=== PATIENT | female | born 1935 | race Caucasian/White ===

== ENCOUNTER 2020-03-12 07:21 | Outpatient (CLI) | payer MEDICARE, OTHER, SELFPAY ==
--- NOTE | ~2020-03-12 | MM_ITS ---
EXAMINATION: MM screening missy BI w johnathon HISTORY: Screening mammogram TECHNIQUE: Craniocaudal and mediolateral oblique 3-D tomosynthesis images were obtained and synthetic 2-D images were generated. CAD analysis was submitted and interpreted. COMPARISON: 02/02/2019 diagnostic left mammogram and limited left breast ultrasound 01/25/2019, 01/06/2018, 11/11/2016 bilateral digital screening mammogram examinations BREAST PARENCHYMAL COMPOSITION: There are scattered areas of fibroglandular density. FINDINGS: Scattered bilateral benign calcifications. New approximately 2.5 mm ill-defined opacity is noted in the posterior central left breast (craniocau alen Tomosynthesis image 25/50). Diagnostic left mammogram and, if necessary, targeted left breast ult rasound examination are recommended. Otherwise there is no evidence of suspicious mass, calcification, or architectural distortion to sugg est malignancy in either breast. There has been no suspicious interval change. IMPRESSION: 1. New irregular 2.5 mm opacity in the posterior central left breast 2. Diagnostic left mammogram is recommended, with ultrasound if required. BI-RADS Category 0: Incomplete: Needs additional imaging evaluation. Reviewed, dictated and finalized at location A. 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
== END 2020-03-12 07:22 | disposition home or self-care (01) ==
PROVIDERS: PCP Family Medicine; Visit Provider Family Medicine
DX: Z12.31 Encounter for screening mammogram for malignant neoplasm of breast (principal); R92.8 Other abnormal and inconclusive findings on diagnostic imaging of breast
CPT/HCPCS: 77063; 77067

== ENCOUNTER 2020-03-13 13:02 | Outpatient (CLI) | payer MEDICARE, OTHER, SELFPAY ==
--- NOTE | ~2020-03-13 | MMUS_ITS ---
EXAMINATION: MM diagnostic mammo unilat LT, US breast LT complete HISTORY: New 2.5 mm opacity reported in posterior central left breast on 03/12/2020 screening mammogr am TECHNIQUE: Additional 3-D tomosynthesis images of the left breast were performed and synthetic 2-D im ages were generated. CAD analysis was submitted and interpreted. High resolution complete left breast ultrasound was performed. COMPARISON: 03/12/2020 bilateral digital screening mammogram FINDINGS: MAMMOGRAPHIC FINDINGS: An approximately 2 mm subtle faint opacity is noted at the posterior margin of the image of the centr al left mid to upper breast on CC projection ULTRASOUND: There is an approximately 1.7 x 2.6 x 3.8 mm sonolucency at 5:00 2 cm from the nipple, not correspond ing to the mammographic finding. Likely a small cyst. No other significant sonographic finding of the left breast is noted. IMPRESSION: 1. Nonspecific subtle 2 mm faint mammographic opacity at posterior central mid to upper left breast. There is no detected sonographic correlate. 2. 6 month diagnostic left mammogram and left breast ultrasound follow-up are recommended. BI-RADS category 3, probably benign findings. Reviewed, dictated and finalized at location A. US AGENT IMPRESSION: 1. Nonspecific subtle 2 mm faint mammographic opacity at posterior central mid to upper left breast. There is no detected sonographic correlate. 2. 6 month diagnostic left mammogram and left breast ultrasound follow-up are r ecommended. BI-RADS category 3, probably benign findings.
== END 2020-03-13 13:03 | disposition home or self-care (01) ==
PROVIDERS: PCP Family Medicine; Visit Provider Family Medicine
DX: R92.8 Other abnormal and inconclusive findings on diagnostic imaging of breast (principal)
CPT/HCPCS: 76641; 77065

== ENCOUNTER 2020-07-02 09:13 | Outpatient (CLI) | payer MEDICARE, OTHER, SELFPAY | END 2020-07-02 09:14 | disposition home or self-care (01) | LOC: ANHCOVIDVC 09:13 | PROVIDERS: PCP Family Medicine | DX: Z23 Encounter for immunization (principal) | CPT/HCPCS: 0001A; 91300 ==

== ENCOUNTER 2020-07-23 09:09 | Outpatient (CLI) | payer MEDICARE, OTHER, SELFPAY | END 2020-07-23 09:10 | disposition home or self-care (01) | LOC: ANHCOVIDVC 09:10 | PROVIDERS: PCP Family Medicine | DX: Z23 Encounter for immunization (principal) | CPT/HCPCS: 0002A; 91300 ==

== ENCOUNTER 2020-10-08 11:36 | Outpatient (CLI) | payer MEDICARE, OTHER, SELFPAY ==
--- NOTE | ~2020-10-08 | MMUS_ITS ---
EXAMINATION: MM diagnostic missy LT w johnathon, US breast LT limited HISTORY: Follow-up left breast mass TECHNIQUE: Additional 3-D tomosynthesis images of the left breast were performed and synthetic 2-D im ages were generated. CAD analysis was submitted and interpreted. High resolution Limited left breast ultrasound was performed. COMPARISON: Comparison to multiple prior studies sequentially, with oldest reviewed study dated 12/21. BREAST PARENCHYMAL COMPOSITION: Breast composed of scattered areas of fibroglandular density. . FINDINGS: MAMMOGRAPHIC FINDINGS: There is a circumscribed radiolucent mass in the mid outer aspect of the left breast anteriorly measu ring 1.5 cm. There are benign left breast calcifications. There are no suspicious areas of architectu ral distortion. ULTRASOUND: Limited left breast ultrasound: At 1:00, 2 cm from the nipple, there is a 1.4 cm cyst. At 3:00, 4 cm from the nipple and, there is an oval circumscribed hypoechoic mass with parallel orientation and ech ogenic hilum measuring 5 mm, likely an intramammary lymph node or cluster of microcysts. IMPRESSION: 1. Probable benign left breast mass at 3:00, 4 cm from the nipple. 2. Recommend 6 month follow-up left breast ultrasound. BI-RADS category 3, probably benign findings. Reviewed, dictated and finalized at location A. IMPRESSION: 1. Probable benign left breast mass at 3:00, 4 cm from the nipple. 2. Recommend 6 month follow-up left breast ultrasound. BI-RADS category 3, probably benign findings.
== END 2020-10-08 11:37 | disposition home or self-care (01) ==
LOC: ANHIMG 11:38
PROVIDERS: PCP Family Medicine; Visit Provider Family Medicine
DX: R92.8 Other abnormal and inconclusive findings on diagnostic imaging of breast (principal)
CPT/HCPCS: 76642; 77061; 77065; G0279

== ENCOUNTER 2021-04-22 11:19 | Outpatient (CLI) | payer MEDICARE, OTHER, SELFPAY ==
--- NOTE | ~2021-04-22 | MMUS_ITS ---
EXAMINATION: MM diagnostic missy BI w johnathon, US breast BI complete HISTORY: Follow-up bilateral breast asymmetries/masses TECHNIQUE: Additional 3-D tomosynthesis images of the breasts were performed and synthetic 2-D images were generated. CAD analysis was submitted and interpreted. High resolution bilateral complete breas t ultrasound was performed. COMPARISON: Comparison to multiple prior studies sequentially, with oldest reviewed study dated 12/21. BREAST PARENCHYMAL COMPOSITION: Breast composed of scattered areas of fibroglandular density. FINDINGS: MAMMOGRAPHIC FINDINGS: There are no suspicious masses, calcifications or architectural distortion in the right breast with s pot compression or mediolateral views. There are benign calcifications. There is a persistent partial ly obscured mass in the upper outer quadrant of the left breast. ULTRASOUND: Complete bilateral US of all 4 quadrants of the breasts and retroareolar region was reviewed. Right breast: At 10:00, 3 cm from the nipple there is a 2 mm cyst. No other masses are identified. Left breast ultrasound: At 3:00, 4 cm from the nipple, there is a complex partially cystic mass with nodular lozada, posterior acoustic enhancement and no internal vascularity. At 4:00, 3 cm from the nip ple, there is an oval hypoechoic mass with internal cystic changes, likely a cluster of microcysts me asuring up to 8 mm. IMPRESSION: 1. Complex partially cystic left breast mass at 3:00, 4 cm from the nipple corresponding to the mammo graphic finding. There are nodular areas along the wall margin. 2. Ultrasound-guided left breast biopsy recommended. BI-RADS category 4, suspicious findings. Reviewed, dictated and finalized at location A. CUTTER IMPRESSION: 1. Complex partially cystic left breast mass at 3:00, 4 cm from the nipple jorge esponding to the mammographic finding. There are nodular areas along the wall m argin. 2. Ultrasound-guided left breast biopsy recommended. BI-RADS category 4, suspicious findings.
== END 2021-04-22 11:20 | disposition home or self-care (01) ==
LOC: ANHIMG 11:21
PROVIDERS: PCP Family Medicine; Visit Provider Physician Assistant
DX: R92.8 Other abnormal and inconclusive findings on diagnostic imaging of breast (principal)
CPT/HCPCS: 76641; 77062; 77066; G0279

== ENCOUNTER 2022-10-14 18:25 | Emergency (ER) | payer MEDICARE, SELFPAY ==
--- NOTE | 2022-10-14 19:30 | PC.NURSE ---
pt at baseline orientation, denies pain, shows no physical sign of dehydration, has no complaints
--- NOTE | 2022-10-14 19:33 | ED.GENADULT ---
HPI - General Adult General Chief complaint: Unspecified Stated complaint: possible dehydration Time Seen by Provider: 10/14/22 19:05 History of Present Illness HPI narrative: 87F h/o dementia (alert only to self at baseline) brought in by niece for wandering. Per niece, patient has advanced dementia, with frequent wandering. Was recently placed in a half-way due to wandering, has only been at that facility for a week. Today she wandered out for a few minutes. After being found and her daughter alerted, the daughter requested the patient be brought for a check up. Per niece, patient is a mental baseline and the patient has been without medical complaints. Patient denying medical complaints. Denied headache, chest pain, shortness of breath, abdominal pain, fevers, chills, nausea, vomiting, dysuria, diarrhea, sick contacts. Related Data Home Medications Medication Instructions Recorded Confirmed fluoxetine 10 mg capsule 10 mg PO DAILY 05/15/22 05/15/22 quetiapine 50 mg tablet 50 mg PO BID 05/15/22 05/15/22 Allergies Allergy/AdvReac Type Severity Reaction Status Date / Time aspirin Allergy Unknown Unknown Verified 05/15/22 15:17 NSAIDS (Non-Steroidal Allergy Unknown Unknown Verified 05/15/22 15:17 Anti-Inflamma Review of Systems Review of Systems: See HPI [facility] Past Medical History Medical History Arthritis Dementia HLD (hyperlipidemia) Hypertension Osteoporosis Family History Family History Father Cancer with unknown primary site Mother Cerebrovascular accident Hypertension Other Family history of arthritis Family history of malignant neoplasm Social History Social History Years smoked: 2 Smoking status: Never smoker Alcohol intake: current Alcohol use details: seldom Substance use: never Substance use type: does not use Occupation/Education: retired Exam Narrative: General: Alert, calm and cooperative, no acute distress, phonating, sitting comfortably during visit, elderly HEENT: Pupils equal round and reactive to light, extra ocular movements intact, no conjunctival injection, head atraumatic, neck supple without meningismus Cardiovascular: Regular rate and rhythm, no visible jugular venous distension Respiratory: Lungs clear to auscultation bilaterally, no wheezing/rales/rhonchi Abdominal: soft, non-tender, non-distended, no guarding, no rebound/peritoneal signs, no costovertebral tenderness to palpation Back: no midline tenderness to palpation, no step offs Extremities: No edema, palpable peripheral pulses, warm, well perfused, no tenderness to bilateral calves Neurological: Alert and oriented x 1 (self; per family this is her baseline), moving all extremities symmetrically, ambulating without deficit Course Vital Signs Vital signs: Vital Signs Pulse Rate 60 10/14/22 20:00 Respiratory Rate 16 10/14/22 20:00 Blood Pressure 147/57 H 10/14/22 20:00 Pulse Oximetry 97 10/14/22 20:00 Pulse Rate 60 10/14/22 20:00 Respiratory Rate 16 10/14/22 20:00 Blood Pressure 147/57 H 10/14/22 20:00 Pulse Oximetry 97 10/14/22 20:00 Medical Decision Making MDM Narrative Medical decision making narrative: 87 year old female history of severe dementia, chronic wandering, recently placed in half-way for wandering brought in by niece after patient wandered. Per niece, patient is at her baseline and didn't have any complaints. Physical exam benign, sitting comfortably in bed, neuro exam non focal, vitals stable. History and exam suggestive of severe dementia. Patient has appropriate resources in place. Appropriate for discharge to nursing facility with family. The patient tolerated oral intake, is alert and oriented at her baseline, speaking with clear speech, ambulated with
[2022-10-14 20:00] VITALS: BP 147/57; PULSE 60; RESP 16; O2SAT 97
== END 2022-10-14 20:22 ==
PROVIDERS: Emergency Provider Emergency Medicine; PCP Family Medicine
DX: F03.C0 Unspecified dementia, severe, without behavioral disturbance, psychotic disturbance, mood disturbance, and anxiety (principal); M19.90 Unspecified osteoarthritis, unspecified site; E78.5 Hyperlipidemia, unspecified; I10 Essential (primary) hypertension; M81.0 Age-related osteoporosis without current pathological fracture
CPT/HCPCS: 99281

== ENCOUNTER 2023-09-21 13:27 | Outpatient (CLI) | payer MEDICARE, SELFPAY ==
--- NOTE | ~2023-09-21 | US_ITS ---
EXAMINATION: US carotid duplex BI DATE: 09/21/2023 14:20 INDICATION: Hemiplegia. TECHNIQUE: Grayscale, color Doppler, and pulsed Doppler images of the cervical carotid arteries were obtained. The degree of vessel stenosis is placed in one of the following categories: normal, <50%, 5 0-69%, >=70% but less than near-occlusion, near-occlusion, or total occlusion. Note that percent sten osis relative to normal distal artery lumen diameter is indirectly measured from velocity measurement s as described by Jose, et al. Radiology 2003; 229:340-346. COMPARISON: None. FINDINGS: RIGHT: The right common carotid artery (CCA) peak systolic velocity (PSV) is 77 cm/s. The right internal car otid artery (ICA) PSV is 68 cm/s. The right ICA end-diastolic velocity (EDV) is 9 cm/s. The right ICA /CCA PSV ratio is 0.9. Grayscale and color Doppler images yield an estimate of <50% diameter reductio n from plaque in the ICA. There is antegrade flow in the right vertebral artery. LEFT: The left CCA PSV is 75 cm/s. The left ICA PSV is 108 cm/s. The left ICA EDV is 12 cm/s. The left ICA/ CCA PSV ratio is 1.4. Grayscale and color Doppler images yield an estimate of <50% diameter reduction from plaque in the ICA. There is antegrade flow in the left vertebral artery. IMPRESSION: 1. <50% stenosis in the right internal carotid artery. 2. <50% stenosis in the left internal carotid artery. Reviewed, dictated and finalized at location A.
== END 2023-09-21 13:28 | disposition home or self-care (01) ==
PROVIDERS: PCP Family Medicine; Visit Provider Student in an Organized Health Care Education/Training Program
DX: I65.23 Occlusion and stenosis of bilateral carotid arteries (principal); G81.90 Hemiplegia, unspecified affecting unspecified side
CPT/HCPCS: 93880

== ENCOUNTER 2023-10-09 11:33 | Emergency (ER) | payer MEDICARE, SELFPAY ==
--- NOTE | ~2023-10-09 | XR_ITS ---
XR chest 2V 10/09/2023 12:13 Indication: Low oxygen saturation Procedure: AP and lateral views of the chest Comparison: Comparison to multiple prior studies sequentially, with oldest reviewed study dated 12/21. Findings: There is bibasilar atelectasis/scarring. Heart size is normal. There is atherosclerosis. No focal pneumonia, edema, pleural effusion or pneumothorax. No acute osseous abnormality. There is an upper lumbar compression fracture, likely chronic. Impression: 1: Bibasilar atelectasis/scarring. Reviewed, dictated and finalized at location B. Impression: 1: Bibasilar atelectasis/scarring.
[2023-10-09 11:34] VITALS: BP 133/63; PULSE 54; RESP 16; TEMP 36.6; O2SAT 100
--- NOTE | 2023-10-09 11:39 | ECG_ITS ---
Test Date: 2023-10-09 11:42:14 Measurements Intervals [place] Rate: 48 P: 14 [place]: 201 QRS: 4 QRSD: 85 T: 28 QT: 475 QTc: 426 Interpretive Statements SINUS BRADYCARDIA BORDERLINE AV CONDUCTION DELAY LEFT VENTRICULAR HYPERTROPHY BASELINE ARTIFACT- I, II, III, AVR, AVL, AVF, V1-V6 BORDERLINE ECG No previous ECG available for comparison Electronically Signed On 10-09-2023 11:54:58 CDT by Kai Enciso D.O.
[2023-10-09 11:47] LABS: Glucose Point of Care 146 mg/dl (65-105)
--- NOTE | 2023-10-09 11:47 | PC.NURSE ---
blood glucose done at this time it was 146
[2023-10-09 11:49] VITALS: O2SAT 96
[2023-10-09 11:54] VITALS: PULSE 48
[2023-10-09 11:58] LABS: Basophils Absolute Auto 0.1 K/mm3 (0.0-0.1); Basophils Percent Auto 0.9 % (0.2-1.2); Eosinophils Absolute Auto 0.1 K/mm3 (0-0.3); Eosinophils Percent Auto 0.9 % (0-4.4); Hematocrit 39.5 % (37.0-47.0); Hemoglobin 12.6 g/dL (12.0-15.0); Immature Granulocyte Absolute 0.05 K/mm3 (0.00-0.031); Immature Granulocyte Percent A 0.8 % (0-0.5); Lymphocytes Absolute Auto 1.99 K/mm3 (0.9-3.2); Lymphocytes Percent Auto 30.2 % (18.3-44.2); Mean Corpuscular HGB Conc 31.9 g/dl (32-36); Mean Corpuscular Hemoglobin 29.8 pg (26-34); Mean Corpuscular Volume 93.4 fl (80-100); Mean Platelet Volume 9.8 fl (7.4-10.4); Monocytes Percent Auto 15.8 % (2.6-8.5); Neutrophils Absolute Auto 3.4 K/mm3 (1.3-6.7); Neutrophils Percent Auto 51.4 % (45.5-73.1); Platelet Count Result 251 k/mm3 (150-375); Red Blood Count 4.23 M/mm3 (4.2-5.4); Red Cell Distribution Width 14.2 % (11.5-14.5); White Blood Count 6.6 K/mm3 (4.5-10.0)
[2023-10-09 12:01] VITALS: BP 142/60; PULSE 48; RESP 17; O2SAT 93
[2023-10-09 12:09] LABS: Alanine Aminotransferase 28 U/L (6-35); Albumin Level 3.7 g/dL (3.5-5.1); Alkaline Phosphatase 128 U/L (38-126); Anion Gap 9 mmol/L (4-12); Aspartate Amino Transferase 32 U/L (14-36); Bilirubin,Total 0.7 mg/dL (0.2-1.3); Blood Urea Nitrogen 29 mg/dL (7-17); Calcium 9.3 mg/dL (8.4-10.2); Carbon Dioxide 26 mmol/L (22-30); Chloride 100 mmol/L (98-107); Estimated CRCL calculation 30 ml/min; Estimated Glomerular Filt Rate 59; Glucose 177 mg/dL (65-110); Potassium 4.1 mmol/L (3.4-5.0); Sodium 135 mmol/L (137-145)
--- NOTE | 2023-10-09 12:18 | ED.GENADULT ---
HPI - General Adult General Chief complaint: Weakness Stated complaint: increased lethargy Time Seen by Provider: 10/09/23 12:05 History of Present Illness HPI narrative: 88 year old female present to the emergency department for evaluation for weakness and lethargy. Patient is A&O x1. EMS reports that the patient's condition has been deteriorating. Upon arrival to the emergency department patient denies any pain or complaints. Patient is resting comfortably and denies any complaints. Related Data Home Medications Medication Instructions Recorded Confirmed aripiprazole 2 mg tablet 2 mg PO DAILY 08/18/23 09/08/23 Allergies Allergy/AdvReac Type Severity Reaction Status Date / Time aspirin Allergy Unknown Unknown Verified 09/08/23 08:47 NSAIDS (Non-Steroidal Allergy Unknown Unknown Verified 09/08/23 08:47 Anti-Inflamma Review of Systems Review of Systems: All systems reviewed & are unremarkable except as noted in HPI and below PMFSH Past Medical History Medical History (Updated 10/09/23 @ 15:24 by Victor M Hui MD) Arthritis Dementia HLD (hyperlipidemia) Hypertension Osteoporosis Right sided weakness Family History Family History Father Cancer with unknown primary site Mother Cerebrovascular accident Hypertension Other Family history of arthritis Family history of malignant neoplasm Social History Social History Years smoked: 2 Smoking status: Never smoker Alcohol intake: current Alcohol use details: seldom Substance use: never Substance use type: does not use Current Housing: Decline to Answer Concerned About Future Housing: Decline to Answer Difficulty Paying Gas/Electric Bills: Decline to Answer Difficulty Paying for Meds: Decline to Answer Currently Unemployed: Decline to Answer Education: Decline to Answer Difficulty w/ Childcare or Family Care: Decline to Answer Occupation/Education: retired Exam Narrative: APPEARANCE: Well appearing, no pain, no distress, well-nourished. HEAD: normocephalic, atraumatic. EYES: PERRLA/EOMI, conjunctivae clear. NOSE: Normal no drainage NECK: Supple. No adenopathy, no masses. RESPIRATORY: Airway patent, respirations nonlabored. Clear to auscultation bilaterally, no rales, rhonchi, wheezing. CARDIOVASCULAR: Regular rate and rhythm without murmurs rubs or gallops. ABDOMINAL: Soft, nontender, nondistended, normal bowel sounds MUSCULOSKELETAL: Moves all extremities. Strength/ROM intact, No edema, No calf tenderness. NEURO: Alert. Cranial nerves II through XII intact. Grossly intact SKIN: Warm, dry. Normal Color Course Vital Signs Vital signs: Vital Signs Temperature 97.8 F 10/09/23 11:34 Pulse Rate 54 L 10/09/23 11:34 Respiratory Rate 16 10/09/23 11:34 Blood Pressure 133/63 10/09/23 11:34 Pulse Oximetry 100 10/09/23 11:34 Oxygen Delivery Room Air 10/09/23 11:34 Temperature 97.8 F 10/09/23 11:34 Pulse Rate 53 L 10/09/23 15:44 Respiratory Rate 18 10/09/23 15:44 Blood Pressure 107/64 10/09/23 15:44 Pulse Oximetry 98 10/09/23 15:44 Oxygen Delivery Room Air 10/09/23 11:49 Medical Decision Making MDM Narrative Medical decision making narrative: 88-year-old female presents emergency department for evaluation for increased generalized weakness. Patient is afebrile with no leukocytosis and a stable hemoglobin of 12.6. Patient has no significant electrolyte abnormalities. Patient was negative for influenza RSV and for COVID and urine showed trace ketones but no underlying evidence infection. Patient denies any complaints. Patient was able to ambulate at her baseline. No acute abnormalities workup in patient states she is at her baseline. Patient is being discharged back to her care facility. Differential Diagnosis Differential Diagnosis:
[2023-10-09 13:09] LABS: Influenza A QL RT-PCR Negative (Negative); Influenza B QL RT-PCR Negative (Negative); RSV RNA, RT-PCR Negative (Negative); SARS-CoV-2 RNA PCR Negative (Negative)
[2023-10-09 14:03] LABS: Appearance Urine Clear (Clear); Bilirubin Urine Negative (Negative); Blood Urine Negative (Negative); Color Urine Dark Yellow (Yellow); Glucose Urine UA Negative (Negative); Ketones Urine Trace mg/dL (Negative); Leukocyte Esterase Ur Negative LEU/UL (Negative); Nitrate Urine Negative (Negative); Protein Urine Negative (Negative); Specific Grav Ur 1.022 (1.001-1.035); pH Urine 5.5 (5.0-9.0)
[2023-10-09 14:04] LABS: Add Urine Microscopic? NO
--- NOTE | 2023-10-09 15:11 | PC.NURSE ---
called daughter Ashley/AUGUSTINA at this time to give an update on the pt
[2023-10-09 15:44] VITALS: BP 107/64; PULSE 53; RESP 18; O2SAT 98
== END 2023-10-09 16:18 ==
PROVIDERS: Student in an Organized Health Care Education/Training Program; Emergency Provider Emergency Medicine; PCP Family Medicine
DX: R53.83 Other fatigue (principal); Z20.822 Contact with and (suspected) exposure to COVID-19; F03.90 Unspecified dementia, unspecified severity, without behavioral disturbance, psychotic disturbance, mood disturbance, and anxiety; I10 Essential (primary) hypertension; E78.5 Hyperlipidemia, unspecified; M81.0 Age-related osteoporosis without current pathological fracture; M19.90 Unspecified osteoarthritis, unspecified site; Z79.899 Other long term (current) drug therapy
CPT/HCPCS: 36415; 71046; 80053; 81003; 82948; 85025; 87637; 93005; 99284

== ENCOUNTER 2023-12-28 06:52 | Emergency (ER) | payer MEDICARE, SELFPAY ==
--- NOTE | ~2023-12-28 | CT_ITS ---
Noncontrast CT scan of the cervical spine Technique: Multiple contiguous axial [address] images of the cervical spine were obtained and rec onstructed in 2D sagittal and coronal planes on the acquisition scanner. Dose reduction technique was used on this scan by utilizing automated exposure control, adjustment of the mA and/or kV according to patient size. The dose-length product (DLP) was 124.19 mGy-cm. Clinical History: Pain Findings: No fractures or dislocations. There is straightening of normal cervical lordosis. There is advanced degenerative disc narrowing throughout the cervical spine. There is extensive facet arthrop athy throughout the cervical spine. There is fusion of the left C3-C4 facet joint. There is bilateral neural foraminal narrowing at C3-C4, C4-C5, C5-C6, and C6-C7. No prevertebral soft tissue swelling. Impression: No fracture or subluxation of the cervical spine. Advanced degenerative spondylosis, as above. Reviewed, dictated and finalized at [facility] [place]. Impression: No fracture or subluxation of the cervical spine. Advanced degenerative spondylosis, as above.
--- NOTE | ~2023-12-28 | CT_ITS ---
CT head without contrast Indication: Status post fall Technique: Serial scans were obtained through the brain without the administration of contrast. Dose reduction technique was used on this scan by utilizing automated exposure control and iterative recon struction technique. The dose-length product (DLP) was 605.33 mGy-cm. Findings: There is no evidence of intracranial hemorrhage, mass lesion, or acute infarct. The ventri cles and subarachnoid spaces are dilated, consistent with mild to moderate atrophy. Low attenuation regions are seen within the periventricular white matter bilaterally, likely representing changes fro m chronic microvascular ischemic disease. There is no evidence of edema, mass effect or midline shif t. The visualized paranasal sinuses and mastoid air cells are clear. Impression: No intracranial hemorrhage, mass, or acute infarct. Atrophy and chronic white matter changes, as above. Reviewed, dictated and finalized at location M. Impression: No intracranial hemorrhage, mass, or acute infarct. Atrophy and chronic white matter changes, as above.
[2023-12-28 06:54] VITALS: BP 141/56; PULSE 54; RESP 17; TEMP 36.4; O2SAT 100
[2023-12-28 07:04] VITALS: BP 141/56; PULSE 52; RESP 17; O2SAT 97
--- NOTE | 2023-12-28 07:56 | ED.FALL ---
HPI - Fall General Chief Complaint: Fall Stated Complaint: fall Time Seen by Provider: 12/28/23 07:01 History of Present Illness HPI Narrative: 88-year-old female presented to the emergency department for evaluation after having a ground level fall. Patient does have dementia at baseline. The patient does not recall the fall. half-way went to check on the patient and found her on the floor with a hematoma on left side of her forehead. Patient denies any pain or complaints. Patient does have dementia and is at baseline per family. Patient's daughter is present during the interview Related Data Home Medications Medication Instructions Recorded Confirmed aripiprazole 2 mg tablet 2 mg PO DAILY 08/18/23 10/19/23 alprazolam 0.25 mg tablet 0.25 mg PO BID 10/19/23 10/19/23 Allergies Allergy/AdvReac Type Severity Reaction Status Date / Time aspirin Allergy Unknown Unknown Verified 10/19/23 10:23 NSAIDS (Non-Steroidal Allergy Unknown Unknown Verified 10/19/23 10:23 Anti-Inflamma Review of Systems Review of Systems: All systems reviewed & are unremarkable except as noted in HPI and below PMFSH Past Medical History Medical History Arthritis Dementia HLD (hyperlipidemia) Hypertension Osteoporosis Right sided weakness Family History Family History Father Cancer with unknown primary site Mother Cerebrovascular accident Hypertension Other Family history of arthritis Family history of malignant neoplasm Social History Social History Years smoked: 2 Smoking status: Never smoker Alcohol intake: current Alcohol use details: seldom Substance use: never Substance use type: does not use Current Housing: Decline to Answer Concerned About Future Housing: Decline to Answer Difficulty Paying Gas/Electric Bills: Decline to Answer Difficulty Paying for Meds: Decline to Answer Currently Unemployed: Decline to Answer Education: Decline to Answer Difficulty w/ Childcare or Family Care: Decline to Answer Occupation/Education: retired Exam Narrative: APPEARANCE: Well appearing, no pain, no distress, well-nourished. HEAD: normocephalic, forehead hematoma. EYES: PERRLA/EOMI, conjunctivae clear. NOSE: Normal no drainage EARS:TMS clear with good light reflex. THROAT: Pharynx clear, no exudate. NECK: Supple. No adenopathy, no masses. RESPIRATORY: Airway patent, respirations nonlabored. Clear to auscultation bilaterally, no rales, rhonchi, wheezing. CARDIOVASCULAR: Regular rate and rhythm without murmurs rubs or gallops. ABDOMINAL: Soft, nontender, nondistended, normal bowel sounds MUSCULOSKELETAL: Moves all extremities. Strength/ROM intact, No edema, No calf tenderness. NEURO: Alert. Cranial nerves II through XII intact. Good gait. Good coordination SKIN: Warm, dry. Normal Color Course Course Emergency Course: Patient was able to ambulate at baseline was discharged back to her care facility. Vital Signs Vital signs: Vital Signs Temperature 97.5 F L 12/28/23 06:54 Pulse Rate 54 L 12/28/23 06:54 Respiratory Rate 17 12/28/23 06:54 Blood Pressure 141/56 H 12/28/23 06:54 Pulse Oximetry 100 12/28/23 06:54 Oxygen Delivery Room Air 12/28/23 06:54 Temperature 97.5 F L 12/28/23 06:54 Pulse Rate 52 L 12/28/23 07:04 Respiratory Rate 17 12/28/23 07:04 Blood Pressure 141/56 H 12/28/23 07:04 Pulse Oximetry 97 12/28/23 07:04 Oxygen Delivery Room Air 12/28/23 06:54 MDM - Fall MDM Narrative Medical decision making narrative: 80-year-old female presenting to the emergency department for evaluation after having a suspected ground level fall. Patient has dementia does not recall the fall. Patient denies any pain or injury. Imaging was negat
== END 2023-12-28 08:44 ==
PROVIDERS: Emergency Provider Emergency Medicine; PCP Family Medicine
DX: S00.83XA Contusion of other part of head, initial encounter (principal); F03.90 Unspecified dementia, unspecified severity, without behavioral disturbance, psychotic disturbance, mood disturbance, and anxiety; I10 Essential (primary) hypertension; E78.5 Hyperlipidemia, unspecified; M19.90 Unspecified osteoarthritis, unspecified site; M81.0 Age-related osteoporosis without current pathological fracture; M47.812 Spondylosis without myelopathy or radiculopathy, cervical region; W18.30XA Fall on same level, unspecified, initial encounter
CPT/HCPCS: 70450; 72125; 99284

== ENCOUNTER 2024-02-29 20:11 | Emergency (ER) | payer MEDICARE, SELFPAY ==
--- NOTE | ~2024-02-29 | CT_ITS ---
CT Facial Bones and Cervical Spine Clinical Indication: Status post fall Technique: Contiguous axial scans were obtained through the facial bones and cervical spine followed by coronal and sagittal reconstructions. Dose reduction technique was used on this scan by utilizing automated exposure control and iterative reconstruction technique. The dose-length product (DLP) was 135.09 mGy-cm. Findings: CT facial bones: No fractures are identified. The visualized paranasal sinuses are clear. Intraorbita l soft tissues appear normal. CT cervical spine: No fractures or subluxation. There is minimal reversal normal cervical lordosis. There is severe degenerative disc narrowing throughout the cervical spine. There are degenerative benigno nges reticulation of the odontoid process with the anterior arch of C1. There is extensive uncoverteb ral degenerative change. There is prominent left facet arthropathy at C2-C3, without definite neural foraminal narrowing. There is mild disc ossify complex at C3-C4 with bilateral facet arthropathy, lef t worse than right. There is bilateral neural foraminal narrowing, left worse than right. No definite canal stenosis or cord compression. At C4-C5, there is mild disc ossify complex with bilateral facet arthropathy. There is bilateral neur al foraminal narrowing, right worse than left. No canal stenosis or cord compression. At C5-C6, there is minimal disc osteophyte complex with probable bilateral neural foraminal narrowing , but no canal stenosis or cord compression. At C6-C7, there is bilateral neural foraminal narrowing without definite canal stenosis or cord compr ession. No prevertebral soft tissue swelling. Impression: No fracture is seen in the facial bones. No fracture or subluxation of the cervical spine. Degenerative spondylosis of the cervical spine, as above. Reviewed, dictated and finalized at [facility]. 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 No fracture or subluxation of the cervical spine. Degenerative spondylosis of the cervical spine, as above.
--- NOTE | ~2024-02-29 | CT_ITS ---
CT head without contrast Indication: Status post fall COMPARISON: 12/28/2023 Technique: Serial scans were obtained through the brain without the administration of contrast. Dose reduction technique was used on this scan by utilizing automated exposure control and iterative recon struction technique. The dose-length product (DLP) was 681.00 mGy-cm. Findings: There is no evidence of intracranial hemorrhage, mass lesion, or acute infarct. The ventri cles and subarachnoid spaces are dilated, consistent with mild to moderate atrophy. Low attenuation regions are seen within the periventricular white matter bilaterally, likely representing changes fro m chronic microvascular ischemic disease. There is no evidence of edema, mass effect or midline shif t. The visualized paranasal sinuses and mastoid air cells are clear. Impression: No intracranial hemorrhage, mass, or acute infarct. Atrophy and chronic white matter changes, as above. Reviewed, dictated and finalized at location [facility] Impression: No intracranial hemorrhage, mass, or acute infarct. Atrophy and chronic white matter changes, as above.
[2024-02-29 21:13] VITALS: BP 132/59; PULSE 49; RESP 16; TEMP 36.5; O2SAT 97
--- NOTE | 2024-02-29 21:22 | PC.NURSE ---
ciro @ [facility] will send over paperwork on this patient.
[2024-03-01] MEDS: ACETAMINOPHEN 500 MG TABLET 1000 MG (03:50)
--- NOTE | 2024-03-01 07:02 | ED.FALL ---
HPI - Fall General Chief Complaint: Fall Stated Complaint: fall - left forehead, denies thinners Time Seen by Provider: 03/01/24 02:37 Source: patient and family (daughter) Limitations: dementia History of Present Illness HPI Narrative: Patient sustained a ground level fall. Had been asleep on the cough but when she got up she became disoriented. Resides in memory care unit. Daughter states patient has fallen 3 times in the past 10 days. Not on anticoagulation. Unknown loss of consciousness. Denies any pain. States she has to urinate at the time of my exam. Related Data Home Medications ?Medication ?Instructions ?Recorded ?Confirmed ?Last Taken ?Type aripiprazole 2 mg tablet 2 mg PO DAILY 08/18/23 10/19/23 Unknown History alprazolam 0.25 mg tablet 0.25 mg PO BID 10/19/23 10/19/23 Unknown History Allergies Allergy/AdvReac Type Severity Reaction Status Date / Time aspirin Allergy Unknown Unknown Verified 02/29/24 21:51 NSAIDS (Non-Steroidal Allergy Unknown Unknown Verified 02/29/24 21:51 Anti-Inflamma PMFSH Past Medical History Medical History Arthritis Dementia HLD (hyperlipidemia) Hypertension Osteoporosis Right sided weakness Family History Family History Father Cancer with unknown primary site Mother Cerebrovascular accident Hypertension Other Family history of arthritis Family history of malignant neoplasm Social History Social History (Updated 03/02/24 @ 20:16 by Deya Brasher MD) Years smoked: 2 Smoking status: Never smoker Alcohol intake: current Alcohol use details: seldom Substance use: never Substance use type: does not use Current Housing: Decline to Answer Concerned About Future Housing: Decline to Answer Difficulty Paying Gas/Electric Bills: Decline to Answer Difficulty Paying for Meds: Decline to Answer Currently Unemployed: Decline to Answer Education: Decline to Answer Difficulty w/ Childcare or Family Care: Decline to Answer Additional living arrangements comments: Memory care Occupation/Education: retired Exam Narrative: GENERAL: Well-appearing, well-nourished, and in no acute distress. HEAD: Ecchymosis left forehead with hematoma. EYES: Non injected, non icteric ENT: Nares clear, no rhinorrhea or epistaxis. Ecchymosis over nasal bridge. No septal hematoma. No obvious loose/broken dentition. NECK: Supple. CHEST: Speaking in full sentences. No respiratory distress. HEART: bradycardic rate and rhythm. . ABDOMEN: Soft, nondistended. EXTREMITIES: Normal range of motion. No lower extremity edema. SKIN: Warm, dry, no rash. NEURO: No focal deficits. Alert and oriented to self. PSYCH: Normal mood and affect. Course Vital Signs Vital signs: Vital Signs Temperature 97.7 F 02/29/24 21:13 Pulse Rate 49 L 02/29/24 21:13 Respiratory Rate 16 02/29/24 21:13 Blood Pressure 132/59 L 02/29/24 21:13 Pulse Oximetry 97 02/29/24 21:13 Temperature 97.8 F 03/01/24 08:14 Pulse Rate 50 L 03/01/24 08:14 Respiratory Rate 16 03/01/24 08:14 Blood Pressure 116/60 03/01/24 08:14 Pulse Oximetry 97 03/01/24 08:14 MDM - Fall MDM Narrative Medical decision making narrative: Patient presents after a ground level fall. She has a forehead bruise and nasal bridge ecchymosis but no septal hematoma. Not on anticoagulation. In the emergency department she is afebrile with vital signs notable for bradycardia as well as acceptable blood pressure though technically with slightly low diastolic reading. Work up unremarkable. will be discharged back to facility. Differential Diagnosis Differential diagnosis: Likely syncope, compression fracture, concussion with loss of consciousness, concussion without loss of consciousness and other (ACS, electrolyte abnormalities, kidney dysfunction; infection) Lab Data Attestation: I reviewed the patient's lab results. Lab results narrative: Labs were reviewed and otherwise unremarkable except for slight elevation of alkaline phosphatase and slight elevation in total protein. CBC generally unremarkable. 03/01/24 03:55 03/01/24 03:55 Labs: Lab Results 03/01/24 03/01/24 Range/Units 03:55 Unknown WBC 8.2 (4.5-10.0) K/mm3 RBC 4.81 (4.2-5.4) M/mm3 Hgb 14.2 (12.0-15.0) g/dL Hct 44.4 (37.0-47.0) % MCV 92.3 (80-100) fl MCH 29.5 (26-34) pg MCHC 32.0 (32-36) g/dl RDW 14.3 (11.5-14.5) % Plt Count 284 (150-375) k/mm3 MPV 9.7 (7.4-10.4) fl Immature Gran % (Auto) 0.5 (0-0.5) % Neut % (Auto) 45.3 L (45.5-73.1) % Lymph % (Auto) 33.1 (18.3-44.2) % Cobb % (Auto) 14.4 H (2.6-8.5) % Eos % (Auto) 5.6 H (0-4.4) % Baso % (Auto) 1.1 (0.2-1.2) % Lymph # (Auto) 2.70 (0.9-3.2) K/mm3 Cobb # (Auto) 1.2 H (0.1-0.6) K/mm3 Eos # (Auto) 0.5 H (0-0.3) K/mm3 Baso # (Auto) 0.1 (0.0-0.1) K/mm3 Abs Immat Gran (auto) 0.04 H (0.00-0.031) K/mm3 Absolute Neuts (auto) 3.7 (1.3-6.7) K/mm3 Absolute Nucleated RBC 0.000 (0.0-0.012) K/mm3 Nucleated RBC % 0.0 (0.0-0.2) % PT 12.2 (11.1-14.7) Seconds INR 0.9 APTT 26.4 (22.3-36.8) Seconds Sodium 139 (137-145) mmol/L Potassium 3.5 (3.4-5.0) mmol/L Chloride 105 (98-107) mmol/L Carbon Dioxide 26 (22-30) mmol/L Anion Gap 8 (4-12) mmol/L BUN 20 H (7-17) mg/dL Creatinine 0.70 (0.7-1.0) mg/dL Estim Creat Clear Calc Not Reportable Estimated GFR > 60 (59 - ) Glucose 87 (65-110) mg/dL Calcium 9.5 (8.4-10.2) mg/dL Total Bilirubin 0.8 (0.2-1.3) mg/dL AST 33 (14-36) U/L ALT 24 (6-35) U/L Alkaline Phosphatase 156 H (38-126) U/L Troponin I < 0.012 (0.000-0.034) ng/mL Total Protein 8.4 H (6.3-8.2) g/dL Albumin 4.1 (3.5-5.1) g/dL Urine Color Yellow (Yellow) Urine Appearance Clear (Clear) Urine pH 5.5 (5.0-9.0) Ur Specific [place] 1.015 (1.001-1.035) Urine Protein Negative (Negative) mg/dL Urine Glucose (UA) Negative (Negative) mg/dL Urine Ketones Negative (Negative) mg/dL Ur Blood (Man) Negative (Negative) Urine Nitrate Negative (Negative) Urine Bilirubin Negative (Negative) Urine Urobilinogen 1.0 (<2.0) mg/dL Leukocyte Esterase Rfl Negative (Negative) AVA/UL Imaging Data Radiologist's impression: CT Facial Stat Rad: There is no evidence of acute displaced fracture dislocation. The globes are intact. There is no retrobulbar hematoma. Incidental findings: There is vascular calcification. There is mild sinus disease without air-fluid levels. There has been prior globe surgery. There is soft tissue swelling/hematoma within the left supraorbital region in contiguous with the left anterior frontal calvarium. Periodontal disease. There are degenerative changes within the right and left TMJ CT C Spine Impression STat RAd: There is osteopenia with advanced multilevel degenerative and spondylitic changes with multilevel facet arthropathy most prominently at the C3-4, C4-5, C5-6 and C6-6 7 levels without evidence of acute displaced fracture. There is pannus formation at the C1-C2 articulation. There is a mild retrolisthesis in C4 in relation to C5 and mild anterolisthesis and C7 in relation to T1. The findings appear chronic and degenerative. Follow-up MRI can be performed for additional evaluation. There are varying degrees of central spinal cord and neural foraminal stenosis most prominent at the C3-4 C4-5 C5-6 and C6-C7 levels. Incidental findings. There is vascular calcification. Lung apices demonstrate linear and ill-defined densities with a calcified granuloma at the left lung apex. Follow-up chest x-ray/CT can be performed for additional evaluation. There is tonsillar calcifications. CT Head: There is ventricular prominence in proportion to cortical sulci chronic post ischemic changes without midline shift mass or acute hemorrhage or depressed calvarial fracture. Follow-up MRI can be performed for additional evaluation. Incidental findings there is focal soft tissue swelling/hematoma continuous with the left frontal calvarium. There is vascular calcification. Prior globe surgery. ECG Data EKG #1: Attestation: I personally reviewed and interpreted this ECG as follows: ECG completion date: 03/01/24 ECG completion time: 04:13 Interpretation: Sinus bradycardia rate of 46 beats per minute. OR interval 199. QRS 86, QT/QTC 476/433. Good R-wave progression across the precordial leads. No T-wave inversions. Normal axis. Discharge Plan Discharge Clinical Impression: Frequent falls, Traumatic ecchymosis of face Patient Disposition: Home, Self-Care Condition: Stable Instructions: Antibiotic Form, Fall Prevention for Older Adults (ED), Ecchymosis (ED) Additional Instructions: No fractures in the bones of the neck or in the bones of the face. No bleeding in the brain. The rest of the medical workup did not identify a clear cause of patient's falls thus it is most likely due to progression of her underlying dementia. Follow-up with primary care physician. Return to the emergency department with any new or worsening symptoms. Offer patient acetaminophen for pain however the next several days as she will likely be sore and achy. Patient Language: Romanian Prescriptions: No Action Zyrtec 10 mg capsule 10 mg PO DAILY PRN (Reason: allergy symptoms) Qty: 90 3RF (DME) [employer] See Rx Instructions .Route Qty: 1 0RF Rx Instructions: As directed aripiprazole 2 mg tablet 2 mg PO DAILY prednisone 10 mg tablet 10 mg PO BID Qty: 20 0RF alprazolam 0.25 mg tablet 0.25 mg PO BID Centrum Silver 0.4 mg-300 mcg- 250 mcg tablet 1 tablet PO DAILY Qty: 30 8RF acetaminophen 500 mg tablet 500 mg PO Q6H PRN (Reason: pain) Qty: 100 0RF hydrocortisone [Anusol-HC] 2.5 % cream with perineal applicator 1 applic RECTAL DAILY PRN (Reason: hemorrhoids) Qty: 30 0RF Metamucil 3.4 gram/5.4 gram powder 1 tbsp PO DAILY PRN (Reason: constipation) Qty: 660 0RF Rx Instructions: mix into at least 8 oz of water or juice before administering diclofenac sodium [Voltaren Arthritis Pain] 1 % gel 2 g topical QID Qty: 100 0RF Rx Instructions: apply to affected joint donepezil 10 mg tablet 10 mg PO QHS Qty: 90 2RF metoprolol succinate 25 mg tablet extended release 24 hr 25 mg PO DAILY Qty: 90 3RF memantine 10 mg tablet See Rx Instructions .ROUTE .COMPLEX Qty: 180 3RF Dose Instruction: TAKE 1 TABLET BY MOUTH TWICE DAILY Rx Instructions: TAKE 1 TABLET BY MOUTH TWICE DAILY fluoxetine 40 mg capsule 40 mg PO DAILY Qty: 30 6RF Follow-up/Referrals: Mera Oliver MD [Primary Care Provider] - Time of Disposition: 07:47
--- NOTE | 2024-03-01 07:06 | PC.NURSE ---
See downtime paper documentation.
[2024-03-01 07:48] VITALS: BP 118/43; PULSE 61; RESP 16; O2SAT 98
[2024-03-01 08:08] LABS: Hematocrit 44.4 % (37.0-47.0); Hemoglobin 14.2 g/dL (12.0-15.0); Mean Corpuscular Hemoglobin 29.5 pg (26-34); Mean Corpuscular Volume 92.3 fl (80-100); Platelet Count Result 284 k/mm3 (150-375); Red Blood Count 4.81 M/mm3 (4.2-5.4); Red Cell Distribution Width 14.3 % (11.5-14.5); White Blood Count 8.2 K/mm3 (4.5-10.0)
[2024-03-01 08:09] LABS: Basophils Percent Auto 1.1 % (0.2-1.2); Eosinophils Percent Auto 5.6 % (0-4.4); Immature Granulocyte Absolute 0.04 K/mm3 (0.00-0.031); Immature Granulocyte Percent A 0.5 % (0-0.5); Lymphocytes Percent Auto 33.1 % (18.3-44.2); Mean Platelet Volume 9.7 fl (7.4-10.4); Monocytes Percent Auto 14.4 % (2.6-8.5); Neutrophils Absolute Auto 3.7 K/mm3 (1.3-6.7); Neutrophils Percent Auto 45.3 % (45.5-73.1)
[2024-03-01 08:10] LABS: Basophils Absolute Auto 0.1 K/mm3 (0.0-0.1); Eosinophils Absolute Auto 0.5 K/mm3 (0-0.3); Monocytes Absolute Auto 1.2 K/mm3 (0.1-0.6)
[2024-03-01 08:12] LABS: INR 0.9; Partial Thromboplastin Time 26.4 Seconds (22.3-36.8); Prothrombin Time 12.2 Seconds (11.1-14.7)
[2024-03-01 08:14] VITALS: BP 116/60; PULSE 50; RESP 16; TEMP 36.6; O2SAT 97
[2024-03-01 08:14] LABS: Add Urine Microscopic? NO; Appearance Urine Clear (Clear); Bilirubin Urine Negative (Negative); Blood Urine Negative (Negative); Color Urine Yellow (Yellow); Glucose Urine UA Negative (Negative); Ketones Urine Negative (Negative); Leukocyte Esterase Ur Negative LEU/UL (Negative); Nitrate Urine Negative (Negative); Protein Urine Negative (Negative); Specific Grav Ur 1.015 (1.001-1.035); pH Urine 5.5 (5.0-9.0)
[2024-03-01 09:57] LABS: Alanine Aminotransferase 24 U/L (6-35); Anion Gap 8 mmol/L (4-12); Aspartate Amino Transferase 33 U/L (14-36); Bilirubin,Total 0.8 mg/dL (0.2-1.3); Blood Urea Nitrogen 20 mg/dL (7-17); Calcium 9.5 mg/dL (8.4-10.2); Carbon Dioxide 26 mmol/L (22-30); Chloride 105 mmol/L (98-107); Estimated Glomerular Filt Rate > 60; Glucose 87 mg/dL (65-110); Potassium 3.5 mmol/L (3.4-5.0); Sodium 139 mmol/L (137-145)
[2024-03-01 09:58] LABS: Albumin Level 4.1 g/dL (3.5-5.1); Alkaline Phosphatase 156 U/L (38-126); Total Protein 8.4 g/dL (6.3-8.2); Troponin I < 0.012 ng/mL (0.000-0.034)
--- NOTE | 2024-03-01 10:25 | ECG_ITS ---
Test Date: 2024-03-01 04:13:20 Measurements Intervals [place] Rate: 46 P: 64 ID: [id number] QRS: 56 QRSD: 86 T: 58 QT: 476 QTc: 416 Interpretive Statements SINUS BRADYCARDIA MODERATE VOLTAGE CRITERIA FOR LVH, CONSIDER NORMAL VARIANT [MEETS CRITERIA IN ONE OF: R(aVL), S(V1), R(V5), R(V5/V6)+S(V1)] Compared to ECG 10/09/2023 11:42:14 No significant changes Electronically Signed On 03-01-2024 14:55:12 RADAR MECHANIC by Murray Raymundo M.D.
== END 2024-03-01 08:17 ==
PROVIDERS: Emergency Provider Student in an Organized Health Care Education/Training Program; PCP Family Medicine
DX: S00.83XA Contusion of other part of head, initial encounter (principal); S00.33XA Contusion of nose, initial encounter; R29.6 Repeated falls; F03.90 Unspecified dementia, unspecified severity, without behavioral disturbance, psychotic disturbance, mood disturbance, and anxiety; E78.5 Hyperlipidemia, unspecified; I10 Essential (primary) hypertension; M81.0 Age-related osteoporosis without current pathological fracture; R00.1 Bradycardia, unspecified; M47.812 Spondylosis without myelopathy or radiculopathy, cervical region; W18.39XA Other fall on same level, initial encounter
CPT/HCPCS: 36415; 70450; 70486; 72125; 80053; 81003; 84484; 85025; 85610; 85730; 93005; 99283; 99284; A9270